=== PATIENT | male | born 1955 | race Caucasian/White ===

== ENCOUNTER 2019-04-02 12:36 | Outpatient (RCR) | payer BC, SELFPAY ==
--- NOTE | 2019-04-02 13:47 | PTOPEVAL ---
Thank you for referring this patient to [facility]. Please review, sign, date and return this plan of care VALENTE. I agree with and certify that the following plan of care is medically necessary. Referring Physician Date Admitting Provider: Attending Provider: PHYSICIAN NOT ON STAFF Referring Provider: *PT Outpatient Evaluation Start: 04/02/19 13:06 Freq: Status: Active Protocol: Document 04/02/19 13:07 ASHLEY (Rec: 04/02/19 13:46 [email or web address]) Therapy Assessment Status Assessment Status Assessment Status Evaluation Evaluation Information Problem Diagnosis right total hip replacement Onset 02/02/19 Subjective Information Pt. reports that he underwent Query Text:As Reported By Patient/ right LIZZ 02/02/19. He reports Family that he has been doing HH therapy until the beginning of Mar. He reports that his pain has worsened since having hip surgery. He states that he had very little pain prior to surgery, just occasssional twinge of pain. He reports that he does get sharp pain that keeps him up at night. He reports that his goal is to decrease the hip pain and improve his strength and walking. Prior Level of Function Activity Level (Last 3 Months) Occupation retired Hand Dominance Left Activity of Daily Living Ability Independent Indoor/Home Mobility Independent Community Mobility Independent Stairs Ability Independent Functional Cognition (Planning, Shopping Independent , Taking Medications) Cooking Yes Cleaning Yes Laundry Yes Shopping Yes Driving Yes Pain Assessment Pain Scale Pain Scale Used Numeric (1 - 10) Self Report Pain Assessment Right Leg(s) Reported Pain Level 4 Pain Description Aching,Burning Pain Frequency Continuous Pain Score Pain Score 4: Self Report Lower Extremity Range of Motion General Lower Extremity Range of Motion Gross Lower Extremity Range of Motion right hip flexion 70 degrees Comments AROM, pt. demonstrate 15-125 degrees right knee AROM. Lower Extremity Muscle Strength Testing General Lower Extremity Strength Gross Lower Extremity Strength
== END 2019-04-26 23:59 | disposition home or self-care (01) ==
LOC: CHSPT 12:36
DX: Z96.641 Presence of right artificial hip joint (principal)
CPT/HCPCS: 97110; 97161; 97530

== ENCOUNTER 2021-02-02 13:44 | Emergency (ER) | payer BC, SELFPAY ==
--- NOTE | ~2021-02-02 | XR_ITS ---
EXAMINATION: XR chest 2V EXAM DATE: 02/02/2021 15:07 INDICATION: Cough and shortness of breath. Post COVID. TECHNIQUE: Frontal and lateral projections of the chest obtained and reviewed. There is no prior viktor dy for comparison. FINDINGS: The lungs are clear. There are no pleural effusions. The cardiomediastinal silhouette is within normal limits. There is no pneumothorax suspected. The bones and soft tissues are unremarkab le. IMPRESSION: Unremarkable chest x-ray exam. Reviewed, dictated and finalized at location B. 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
[2021-02-02 13:59] VITALS: BP 148/71; PULSE 180; RESP 20; TEMP 37.3; O2SAT 98
[2021-02-02 14:05] VITALS: PULSE 76
--- NOTE | 2021-02-02 14:25 | ECG_ITS ---
Measurements Intervals [place] Rate: 93 P: 259 [place]: 211 QRS: 55 QRSD: 145 T: 256 QT: 355 QTc: 444 Interpretive Statements ATRIAL FLUTTER/TACHYCARDIA LEFT BUNDLE BRANCH BLOCK BASELINE ARTIFACT- III ABNORMAL ECG Electronically Signed On 02-03-2021 7:31:20 [employer] by Saqib Angeles D.O.
--- NOTE | 2021-02-02 15:10 | ED.URI ---
HPI - URI/Sore Throat General Chief Complaint: Upper Respiratory Infection Stated Complaint: sinus pressure / infection Time Seen by Provider: 02/02/21 14:20 Source: patient, family, RN notes reviewed and old records reviewed Mode of arrival: ambulatory Limitations: no limitations History of Present Illness HPI Narrative: 65-year-old male accompanied by significant other presents to [facility] with complaints of frequent cough and sinus congestion with drainage, sore throat for the past day and a half. with highest temp noted 100.8F. Patient states he had Covid on January along with all family members.Significant other states that she has a pulse ox at home and heart rate was 171 and at triage heart rate 180, states has history of a weak heart valve. Patient states that he has had some shortness of breath with activity which is mild he reports,denies any chest pain, pressure or any palpitation, MD elicited complaint: cough, rhinorrhea and nasal congestion Related Data Home Medications Medication Instructions Recorded Confirmed duloxetine 20 mg PO BID 02/02/21 02/02/21 gabapentin 100 mg PO TID 02/02/21 02/02/21 isosorbide mononitrate 30 mg PO DAILY 02/02/21 02/02/21 lisinopril 5 mg PO DAILY 02/02/21 02/02/21 metoprolol tartrate 50 mg PO BID 02/02/21 02/02/21 rosuvastatin 20 mg PO DAILY 02/02/21 02/02/21 Allergies Allergy/AdvReac Type Severity Reaction Status Date / Time No Known Allergies Allergy Verified 02/02/21 14:43 Review of Systems Review of Systems: CONSTITUTIONAL: Positive for low grade fever, no chills, or sweats. EYES: Denies visual changes, redness, or discharge. ENT: Positive for rhinorrhea, congestion, sore throat, no otalgia. CARDIOVASCULAR: Denies chest pain, palpitations, or edema. RESPIRATORY: Positive for cough and dyspnea with exertion. GASTROINTESTINAL: Denies abdominal pain, nausea, vomiting, or diarrhea. GENITOURINARY: Denies dysuria or hematuria. SKIN: Denies rash or itching. MUSCULOSKELETAL: some chronic back pain, joint pain, no body aches NEUROLOGIC: Denies headache, numbness, or weakness. PSYCHIATRIC: Denies anxiety or depression. All systems reviewed & are unremarkable except as noted in HPI and below PMFSH Past Medical History Medical History (Updated 02/04/21 @ 13:20 by Krystal Hearn NP) Arthritis Back pain Bronchitis Elevated cholesterol Hypertension Leaky heart valve Surgical History Surgical History (Updated 02/04/21 @ 13:21 by Krystal Hearn NP) History of hip replacement x2 Social History Social History (Updated 02/04/21 @ 13:23 by Krystal Hearn NP) Smoking status: Never smoker Alcohol intake: current Alcohol use details: social Substance use: never Living arrangements: with family Gender identity (if verbalized by the patient): Male Comments At time of signature, agree with nursing past medical, surgical, social and family history. There is no relevant family history pertinent to the presenting complaint Exam Narrative: GENERAL: Well-appearing, well-nourished, and in no acute distress. HEAD: Normocephalic, atraumatic. EYES: PERRLA and EOMI. ENT: Nares patent with clear rhinorrhea no epistaxis. Mucous membranes moist.TM's normal with dull light reflex, throat red with no lesions or exudates, no tonsil enlargement NECK: Supple.no lymphadenopathy CHEST: Coarse breath sounds on auscultation. No respiratory distress. SAO2 98% on room air, reports some dyspnea with exertion and cough, no tachypnea noted. HEART: Regular rate and rhythm. No murmur heard. Normal peripheral pulses ABDOMEN: Soft, nontender, nondistended, normal active bowel sounds. EXTREMITIES: Normal range of motion. No edema. SKIN: Warm, dry, no rash. NEURO: No focal deficits. Alert and oriented x3. Course Vital Signs Vital signs: Vital Signs Temperature 37.3 C 02/02/21 13:59 Pulse Rate 180 H 02/02/21 13:59 Respiratory Rate 20 02/02/21 13:59 Blood
[2021-02-02 15:40] VITALS: PULSE 80
== END 2021-02-02 15:40 | disposition home or self-care (01) ==
PROVIDERS: Emergency Provider Registered Nurse; PCP Internal Medicine Geriatric Medicine
DX: J40 Bronchitis, not specified as acute or chronic (principal); I10 Essential (primary) hypertension
CPT/HCPCS: 71046; 87804; 93005; 99213; G0463